=== PATIENT | male | born 1985 | race Caucasian/White ===

== ENCOUNTER 2018-02-17 10:05 | Emergency (ER) | payer BC ==
--- NOTE | 2018-02-17 10:39 | UC ---
Head Injury HPI - HPI Summary HPI Summary: 32 yo with PMH of DM1 who states that at 0830 slipped on the pavement of the parking lot at work and hit the back of his head. He does not know if he hit the pavement or the ledge of his truck. Denies LOC, denies amnesia, nausea, vomiting, visual disturbance, numbness, dizziness or gait disturbancel. Had 4-5 stronger than normal beers last night and had woken up with a slight headache which is still present. 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 Denies polys - History Of Current Complaint Chief Complaint: UCHeadInjury Stated Complaint: HEAD INJ (FALL ON ICE) Time Seen by Provider: 02/17/18 10:12 Hx Obtained From: Patient Onset/Duration: Sudden Onset, Lasting Minutes Severity Currently: Mild Severity Initially: Moderate Pain Intensity: 2 Character: Sharp, Throbbing Aggravating Factor(s): Nothing Alleviating Factor(s): Nothing Associated Signs And Symptoms: Positive: Negative - Risk Factors SDH Risk Factor: Male - Allergies/Home Medications Allergies/Adverse Reactions: Allergies Allergy/AdvReac Type Severity Reaction Status Date / Time No Known Allergies Allergy Verified 02/17/18 10:15 PMH/Surg Hx/FS Hx/Imm Hx Endocrine History: Diabetes - Surgical History Surgical History: None - Family History Known Family History: Positive: None - Social History Alcohol Use: Weekly Alcohol Amount: 1-2 times per week Substance Use Type: None Smoking Status (MU): Current Some Day Smoker Type: Smokeless Tobacco Amount Used/How Often: Not Daily Review of Systems All Other Systems Reviewed And Are Negative: Yes Neurological: Positive: Headache Physical Exam - Summary Physical Exam Summary: hematoma on scalp midline on border of parietal and occipital areas of head. No scalp laceration, no abrassion or bleeding. Skull is normal no deformity noted Triage Information Reviewed: Yes Appearance: Well-Appearing, No Pain Distress, Well-Nourished Vital Signs: Initial Vital Signs Temp 98.5 F 02/17/18 10:11 Pulse 112 02/17/18 10:11 Resp 18 02/17/18 10:11 BP 150/102 02/17/18 10:11 Pulse Ox 99 02/17/18 10:11 Vital Signs Reviewed: Yes Eyes: Positive: Conjunctiva Clear ENT: Positive: Hearing grossly normal, Pharynx normal, TMs normal, Uvula midline Neck: Positive: Supple, Nontender, No Lymphadenopathy Respiratory: Positive: Chest non-tender, Lungs clear, Normal breath sounds, No respiratory distress Cardiovascular: Positive: RRR, No Murmur, Pulses Normal, Brisk Capillary Refill , Tachycardia Abdomen Description: Positive: Nontender, No Organomegaly, Soft Bowel Sounds: Positive: Present Musculoskeletal: Positive: Strength Intact, ROM Intact, No Edema Neurological: Positive: Alert, Muscle Tone Normal, Fatigued, Other: - CN II-XII grossly intact, gait wnl, sensory intact, normal coordination, no nistagmus, CHAU EOM wnl, FROMX4, strength 5/5x4 romberg negative. Psychological: Positive: Normal Response To Family, Age Appropriate Behavior Head Injury Course/Dx - Course Course Of Treatment: Patient had head contusion without LOC for which he has a small hematoma of scalp 4x3.5cm in dimensions. Neurologically intact, no symptoms suggestive of post concussion syndrome. 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 F/u with PCP and monitor for signs should they develop to return to in that case or ER - Differential Dx/Diagnosis Provider Diagnoses: Head contusion. Sinus tachycardia. DM1 Discharge - Sign-Out/Discharge Documenting (check all that apply): Patient Departure All imaging exams completed and their final reports reviewed: No Studies - Discharge Plan Condition: Stable Disposition: HOME Prescriptions: Acetaminophen TAB* [Tylenol TAB*] 650 mg PO Q8H PRN #30 tab PRN Reason: Pain Patient Education Materials: Acetaminophen (By mouth), Contusion in Adults (ED) Referrals: [facility] [Outside] No Primary Care Phys,NOPCP [Primary Care Provider] - - Billing Disposition and Condition Condition: STABLE Disposition: Home
[2018-02-17 10:40] VITALS: BP 126/85
== END 2018-02-17 10:41 | disposition home or self-care (01) ==
LOC: UCCORT 10:05
DX: S00.93XA Contusion of unspecified part of head, initial encounter (principal); W01.10XA Fall on same level from slipping, tripping and stumbling with subsequent striking against unspecified object, initial encounter; Y92.481 Parking lot as the place of occurrence of the external cause; R00.0 Tachycardia, unspecified; E10.9 Type 1 diabetes mellitus without complications; Z79.4 Long term (current) use of insulin; F17.210 Nicotine dependence, cigarettes, uncomplicated
CPT/HCPCS: 93005; 99202; G0463